=== PATIENT | female | born 1975 | race Hispanic/Latino ===

== ENCOUNTER 2022-08-03 11:20 | Observation (INO) | payer BC ==
[2022-08-03] MEDS ORDERED: ROCURONIUM 50 MG/5 ML VIAL IV ONE (12:17)
[2022-08-03] MEDS ORDERED: FENTANYL CITR 100 MCG/2 ML ONE (12:17)
[2022-08-03] MEDS ORDERED: LIDOCAINE 2% MPF 5 ML VIAL ONE (12:17)
[2022-08-03] MEDS ORDERED: propofoL 200 MG/20 ML VIAL IV ONE (12:17)
[2022-08-03] MEDS ORDERED: ONDANSETRON 4 MG/2 ML VIAL ONE (12:18)
[2022-08-03] MEDS ORDERED: KETOROLAC 30 MG/ML INJ ONE (12:18)
[2022-08-03] MEDS ORDERED: dexAMETHasone 10 MG/ML VIAL ONE (12:18)
[2022-08-03] MEDS ORDERED: Ringers Lactate 1,000 ML IV ONE (12:18)
[2022-08-03] MEDS ORDERED: BUPIVACAINE 0.5% PF 10 ML VIAL ONE (12:33)
--- NOTE | 2022-08-03 12:36 | P.HP ---
Date of Service: 08/03/22 Chief complaint: Abdominal pain History of present Illness: Patient is a 47-year-old female presents to [place] [facility] with 8-hour history of periumbilical abdominal pain localizing on the right side associated with nausea and vomiting. Patient does have some anorexia. Patient denies sore throat, runny nose, cough, headaches, dizziness, chest pain, fever or chills. Patient denies diarrhea, constipation and blood per rectum. Patient denies dysuria or hematuria. Review of systems: Otherwise unremarkable Past medical history: Negative Past surgical history: Right breast mass excision Allergies: None Social history: Does not smoke and drinks alcohol occasionally Family history: Hypertension in the mother Vital signs: Stable, afebrile Physical exam: Awake, alert and oriented x3 Head and neck: Cranial nerves II through XII grossly within normal limit, no neck masses, no JVD, throat clear and neck supple Chest: Clear Heart: S1-S2 Abdomen: Soft, nondistended, positive bowel sounds with positive right lower quadrant tenderness with minimal rebound and no rigidity or guarding Extremity: Neurovascular intact and nontender Neuro: Nonfocal Diagnostic data: White count is 15,000 with a left shift and CT of the abdomen pelvis is consistent with acute appendicitis and complicated in nature Assessment: Acute appendicitis Plan/recommendation: Admit, n.p.o., IV fluids, IV antibiotics and to the OR for laparoscopic appendectomy possible open. Patient understands risks, benefits and alternatives and agrees to procedure. CC:
[2022-08-03] MEDS ORDERED: NEOSTIGMINE 1 MG/ML -10 ML VIAL ONE (13:23)
[2022-08-03] MEDS ORDERED: GLYCOPYRROLATE 0.2 MG/ML SYR ONE (13:23)
[2022-08-03] MEDS ORDERED: Mastisol Adhesive Liq ONE (13:35)
--- NOTE | 2022-08-03 13:40 | P.OP ---
Date of Service: 08/03/22 Preop diagnosis: Acute appendicitis Postop diagnosis: Same Procedure performed: Laparoscopic appendectomy Surgeon: Anuj Figueredo MD Hogshead Inspector: None Estimated blood loss: Minimal Specimen: Appendix Findings: Acute suppurative appendicitis Anesthesia: General Complications: None Drains: None Fluids and blood products: Nonapplicable Disposition: Recovery room Operative note: Patient brought to the OR and placed in the supine position. General anesthesia begun. Patient prepped and draped in the usual sterile fashion. Marcaine 0.5% infiltrated locally. 15 blade used to make a 1 cm supraumbilical midline incision. Subcutaneous tissue divided. Bleeding controlled cautery. Fascia identified and divided. #1 Vicryl stay suture placed. Peritoneal cavity entered with sharp and blunt dissection. 12 mm trocar placed into the peritoneal cavity under direct vision. Pneumoperitoneum established. 2 5 mm trochars placed. 1 trocar placed in the left lower quadrant. Another trocar placed in the suprapubic region under direct vision. Laparoscopy revealed normal tubes, ovaries, uterus, small bowel, colon, liver, gallbladder and peritoneal surface. The appendix was inflamed with suppuration. Mesoappendix and base of the appendix clearly identified. Endo CIERA stapling device used to divide the mesoappendix and the base of the appendix on the cecum. Appendix retrieved through the umbilicus via Endo Catch bag. Right lower quadrant irrigated and effluent clear. No evidence of bleeding or bowel injury appreciated. All trochars removed under direct vision. Stay sutures tied to each other to reapproximate the fascial defect. Subcutaneous was irrigated and bleeding controlled with cautery. 3-0 chromic used to reapproximate subcutaneous tissue and close skin. Sterile dressing applied and patient awakened. Patient taken to recovery room in good general condition. CC:
[2022-08-03] MEDS ORDERED: ONDANSETRON 4 MG/2 ML VIAL IV PRN (13:51)
[2022-08-03] MEDS ORDERED: HYDROMORPHONE HCL 1 MG/ML INJ IV PRN (13:51)
[2022-08-03] MEDS: Ringers Lactate 1,000 ML IV SCH ×2 (14:00→17:34)
[2022-08-03] MEDS ORDERED: PIPER TAZO 3.375 GM in NA CHLORIDE 0.9% 100 ML IV ONE (14:00)
[2022-08-03 14:34] VITALS: BMI 26.2
[2022-08-03] MEDS: PIPER TAZO 3.375 GM in NA CHLORIDE 0.9% 100 ML IV SCH (20:05)
[2022-08-03] MEDS: HYDROCODONE/APAP 7.5/325 MG TAB PO PRN (22:33)
[2022-08-04] MEDS ORDERED: PIPERACIL/TAZO 3.375 GM VIAL IV ONE ×2 (02:30→08:07)
[2022-08-04] MEDS ORDERED: NA CHLORIDE 0.9% 100 ML ONE ×2 (02:31→08:18)
[2022-08-04] MEDS: PIPER TAZO 3.375 GM in NA CHLORIDE 0.9% 100 ML IV SCH (03:01)
[2022-08-04] MEDS: Ringers Lactate 1,000 ML IV SCH ×3 (03:01→10:00)
[2022-08-04 03:44] LABS: Absolute Lymphocytes (CBC) 0.4 K/uL (0.7-4.9); Hematocrit 34.2 % (36.0-45.0); Lymphocytes % 3.1 % (15.3-44.8); MCV 91.7 fL (80-100); MPV 8.3 fL (7.6-11.3); RBC Red Blood Cell Count 3.73 M/uL (3.86-4.86)
[2022-08-04 05:01] LABS: Blood Morphology Comment NOT SEEN (NOT SEEN); Platelet Estimate ADEQ
[2022-08-04] MEDS: HYDROCODONE/APAP 7.5/325 MG TAB PO PRN (09:14)
[2022-08-04 09:22] VITALS: BP 104/68; TEMP 98.8
[2022-08-04 09:49] VITALS: O2SAT 97
--- NOTE | 2022-08-04 21:32 | DS ---
Date of Discharge: 08/04/2022 Admitting Diagnosis: Acute appendicitis. Discharge Diagnosis: Acute appendicitis. Hospital Course: Patient is a 47-year-old female who underwent a laparoscopic appendectomy yesterday . Postoperatively, she is tolerating diet, ambulating, pain controlled with p.o. pain medication, af ebrile, therefore patient will be discharged to home. Disposition: Home. Condition: Stable. Discharge Instructions: Resume home medications and diet. Activity as tolerated. No heavy lifting. Follow up in my office in 2 weeks. Call for appointment. A prescription for Augmentin and [place] h as been called into patient's pharmacy. /MODL Voice ID: [id number] Report ID: [id number]
== END 2022-08-04 10:43 | disposition home or self-care (01) ==
LOC: EDSTATUS 11:48 → INTOOBSV 11:53 → 4TH 11:53
PROVIDERS: ADMIT Surgery; ATTEND Surgery
PROC: 0DTJ4ZZ Resection of Appendix, Percutaneous Endoscopic Approach (ICD-10-PCS; principal; 2022-08-03 13:00)
DX: K35.80 Unspecified acute appendicitis (principal)
CPT/HCPCS: 85025; 36415; 82565; 88304; 94010; 44970; J2704; J2710; J2543 ×3; J2001; J3010; J1100; J1170; J7120 ×3; J2405 ×2; G0378; G0379